=== PATIENT | female | born 2000 | race African-American/Black ===

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

== ENCOUNTER 2021-07-03 20:15 | Emergency (ER) | payer OTHER ==
[~2021-07-03] VITALS: Ht 165.1 cm; Wt 54.0 kg
[2021-07-03 22:04] LABS: URINE BILIRUBIN - DIPSTICK NEGATIVE (NEGATIVE); URINE BLOOD DIPSTICK NEGATIVE (NEGATIVE); URINE COLOR YELLOW; URINE GLUCOSE - DIPSTICK NEGATIVE (NEGATIVE); URINE KETONE 15 mg/dL (NEGATIVE); URINE LEUK ESTERASE NEGATIVE (NEGATIVE); URINE PROTEIN - DIPSTICK TRACE mg/dL (NEG-TRACE); URINE SPECIFIC GRAVITY 1.025
[2021-07-03 22:05] LABS: IMMATURE GRANULOCYTES 0.1 % (0.0-5.0); MEAN CORPUSCULAR HGB 20.4 pG CALC (26.0-32.0); NEUT# 4.26 thou/uL (2.00-7.15); RED BLOOD COUNT 4.89 mill/uL (4.20-5.60); RED CELL DISTRI WIDTH 20.5 % (11.5-15.5)
[2021-07-03 22:06] LABS: URINE NITRITE - DIPSTICK NEGATIVE (Negative)
[2021-07-03 22:06] LABS: HEMATOCRIT 30.3 % (37.0-47.0)
[2021-07-03 22:28] LABS: ALBUMIN 4.3 g/dL (3.2-5.0); ALKALINE PHOSPHATASE 76 u/l (38-126); ANION GAP 13 (6-22 (CALC)); BILIRUBIN, TOTAL 0.4 mg/dL (0.0-1.4); BUN 6 mg/dL (7-17); BUN/CREATININE RATIO 12 (12-20 (CALC)); CARBON DIOXIDE 24 mmol/l (22-30); CHLORIDE 103 mmol/l (95-108); CREATININE 0.5 mg/dL (0.5-1.0); GFR > 60 ML/MIN (>=60 (CALC)); GFR FOR AFR.AMER. > 60 ML/MIN (>=60 (CALC)); POTASSIUM 3.5 mmol/l (3.5-5.1); SGOT/AST 15 u/l (14-36); SODIUM 137 mmol/l (137-146)
[2021-07-03] MEDS ORDERED: ZOFRAN4 MG/TAB PO (22:40)
[2021-07-03 23:05] VITALS: BP 119/79
== END 2021-07-03 23:05 | disposition home or self-care (01) ==
LOC: ED 20:15
DX: O26.891 Other specified pregnancy related conditions, first trimester (principal); R11.0 Nausea; Z3A.01 Less than 8 weeks gestation of pregnancy

== ENCOUNTER 2024-10-21 14:44 | Emergency (ER) | payer OTHER ==
[~2024-10-21] VITALS: Ht 165.1 cm; Wt 58.9 kg
[~2024-10-21 14:44] MED LIST changes: +ZOFRAN4 MG/TAB PO
[2024-10-21 14:51] VITALS: BP 126/69
[2024-10-21] MEDS ORDERED: KETOROLAC TROMETHAMINE 30 MG/ML SDV IM ONE (14:55)
[2024-10-21 15:00] VITALS: BP 119/75
[2024-10-21 15:15] VITALS: BP 112/70
[2024-10-21 15:30] VITALS: BP 113/73
[2024-10-21] MEDS ORDERED: TAM75CAP PO (15:52)
[2024-10-21 16:14] VITALS: BP 113/73
== END 2024-10-21 16:22 | disposition home or self-care (01) | DRG 195 ==
LOC: ED 14:44
DX: J10.1 Influenza due to other identified influenza virus with other respiratory manifestations (principal); Z20.822 Contact with and (suspected) exposure to COVID-19